=== PATIENT | female | born 1995 | race Caucasian/White ===

== ENCOUNTER → 2018-04-17 09:14 | Outpatient (CLI) | payer BC, SELFPAY ==
[2018-04-17 09:46] LABS: Add Manual Diff / Slide Review NO; Basophils Absolute Auto 0 /uL (0-100); Basophils Percent Auto 0.2 % (0-2); Eosinophils Absolute Auto 0 /uL (0-450); Hematocrit 38.7 % (36-46); Lymphocytes Absolute Auto 1800 /uL (1100-4500); Lymphocytes Percent Auto 18.7 % (25-40); Mean Corpuscular HGB Conc 33.7 % (30-36); Mean Corpuscular Hemoglobin 28.2 PG (26-34); Mean Corpuscular Volume 83.7 fL (80-100); Monocytes Absolute Auto 400 /uL (0-900); Monocytes Percent Auto 4.4 % (3-14); Neutrophils Absolute Auto 7500 /uL (1500-7000); Neutrophils Percent Auto 76.7 % (50-75); Platelet Count 233 X10^3/uL (150-400); Red Blood Cell Count 4.62 X10^6/uL (4.0-5.2); Red Cell Distribution Width 13.7 % (11.6-14.8); White Blood Cell Count 9.7 X10^3/uL (4.5-11.0)
[2018-04-17 10:00] LABS: Appearance Urine UA CLEAR; Bilirubin Urine UA NEGATIVE (NEGATIVE); Color Urine UA YELLOW; Glucose Urine UA NEGATIVE (Negative); Ketones Urine UA NEGATIVE (NEGATIVE); Leukocyte Esterase Urine UA NEGATIVE (NEGATIVE); Nitrite Urine UA NEGATIVE (Negative); Occult Blood Urine UA NEGATIVE (Negative); Protein Urine UA NEGATIVE (Negative); Specific Gravity Urine UA <=1.005 (1.000-1.035); Urobilinogen Urine UA 0.2 E.U./dL (0.2); pH Urine UA 6.5 (4.5-8.0)
[2018-04-17 11:04] LABS: Hepatitis B Surface Antigen NEGATIVE s/c (NEGATIVE); Rubella Antibody IgG 39.3 IU/mL (>15)
[2018-04-17 11:15] LABS: HIV 1 and 2 Antibody NEGATIVE (NEGATIVE); Hep C Virus Ab w/Reflex Quant NEGATIVE s/c (NEGATIVE)
[2018-04-18 15:06] LABS: RPR Screen Nonreactive (Nonreactive)
== END ==
PROVIDERS: Visit Provider Obstetrics & Gynecology
DX: Z34.01 Encounter for supervision of normal first pregnancy, first trimester (principal)
CPT/HCPCS: 36415; 80055; 81003; 86703; 86787; 86803; 86850; 86900; 86901; 87077; 87086; 87186

== ENCOUNTER → 2018-04-25 16:38 | Outpatient (CLI) | payer BC, SELFPAY ==
[2018-04-25 17:00] LABS: Specimen Label NATURA
== END ==
PROVIDERS: Visit Provider Obstetrics & Gynecology
DX: Z34.91 Encounter for supervision of normal pregnancy, unspecified, first trimester (principal)
CPT/HCPCS: 36415

== ENCOUNTER → 2018-06-21 14:26 | Outpatient (CLI) | payer BC, OTHER, MEDICAID, SELFPAY ==
[2018-06-26 13:47] LABS: AFP, Serum 55.2 ng/mL; Calc Gestational Age 18.3; Est Date Determined by US; Maternal Weight 175 lbs; Number of Fetuses NOT GIVEN; Prev Pregnancies Down Syndrome NOT GIVEN
== END ==
PROVIDERS: PCP Family Medicine; Visit Provider Obstetrics & Gynecology
DX: Z34.02 Encounter for supervision of normal first pregnancy, second trimester (principal)
CPT/HCPCS: 36415; 82105

== ENCOUNTER → 2018-07-04 15:06 | Outpatient (CLI) | payer BC, OTHER, MEDICAID, SELFPAY ==
--- NOTE | 2018-07-04 15:08 | DI.US.S_ITS ---
PROCEDURE: US OB >= 14 WEEKS FETUS INDICATIONS: anatomy survey OUTSIDE/PRIOR DATING DATA: Last menstrual period (LMP): Unknown. LMP-based estimated date of delivery (SYMONE): N./A.. First dating scan (date and location): 04/25/18. Estimated date of delivery (SYMONE) from first dating scan: 11/21/18. TECHNIQUE: Real-time scanning was performed of the fetus, with image documentation and biometric measurements. Endovaginal scanning: Not requested. COMPARISON: [facility], OB <= 14 WEEKS FETUS, 05/22/2018, 14:25. [facility], , OB <= 14 WEEKS FETUS, 04/25/2018, 16:21. FINDINGS: General: A single living intrauterine gestation is present. Presentation: Breech. Placenta: Placental position is anterior right lateral, without previa. Amniotic fluid index: 14.9 cm, normal range is 5-24 cm. heart rate: 140 beats per minute. Maternal cervical canal: 4.4 cm long. Normal lower limit is 2.5 cm. biometrics: Biparietal diameter: 21 weeks 0 days Head circumference: 21 weeks 0 days Abdominal circumference: 20 weeks 3 days Femur length: 20 weeks 6 days Estimated gestational age from initial scan: 20 weeks Composite gestational age from present scan: 20 weeks 5 days Estimated weight and percentile: 369 g; 82nd percentile Measurement variability for biometric dating: +/- 7 days from 14 weeks to 15 weeks 6 days gestation, +/- 10 days from 16 weeks to 21 weeks 6 days gestation, +/- 2 weeks from 22 weeks to 27 weeks 6 days gestation, +/- 3 weeks for 28 weeks gestation or later. weight reference: 4500 g or EFW >90/95% is considered macrosomia or large for gestational age. EFW <10% is small for gestational age. EFW 5% or less is considered intra-uterine growth restriction. Anatomic survey: Neuro: Ventricles are non-dilated at less than 10 mm. Cisterna magna is normal at 3-11 mm. Cerebellum is normal in size and morphology. Nuchal skin fold: Normal at less than 6 mm between 14-21 weeks gestational age. Face: Nose and lips, facial profile are normal. Spine: No evidence for spina bifida. Heart: 4-chambered heart is present, with normal ventricular outflow tracts. Diaphragm: Diaphragm is intact. Stomach: Left-sided stomach is present. Kidneys: No hydronephrosis. Normal is less than 5 mm in 2nd trimester, less than 7 mm in 3rd trimester. Cord: 3-vessel cord has orthotopic insertion. Bladder: Normal in size. Extremities: All 4 extremities identified. IMPRESSION: 1. Single living IUP redemonstrated and interval growth is normal. 2. Normal anatomic survey. Dictated by: Luis Carlos [facility] Interpreted: Cong Martinez MD on 07/05/2018 at 8:11 Approved by: Cong Martinez M.D. on 07/06/2018 at 9:48
== END ==
PROVIDERS: PCP Family Medicine; Visit Provider Obstetrics & Gynecology
DX: Z34.02 Encounter for supervision of normal first pregnancy, second trimester (principal); Z3A.20 20 weeks gestation of pregnancy
CPT/HCPCS: 76811

== ENCOUNTER → 2018-08-05 09:19 | Outpatient (CLI) | payer BC, OTHER, MEDICAID, SELFPAY ==
[2018-08-05 11:09] LABS: Hematocrit 31.6 % (36-46); Hemoglobin 11.1 g/dL (12.0-16.0)
[2018-08-05 11:20] LABS: GTT (PREG) 1 Hour PP 50gm Dose 69 mg/dL (76-139)
== END ==
PROVIDERS: PCP Family Medicine; Visit Provider Obstetrics & Gynecology
DX: Z34.02 Encounter for supervision of normal first pregnancy, second trimester (principal)
CPT/HCPCS: 36415; 82950; 85014; 85018

== ENCOUNTER 2018-08-22 15:47 | Observation (INO) | payer BC, OTHER, MEDICAID, SELFPAY ==
[2018-08-22] MEDS: ACETAMINOPHEN 325 MG TABLET 650 MG PO (17:08)
[2018-08-22 17:24] LABS: Fetal Fibronectin Negative
== END 2018-08-22 18:00 | disposition home or self-care (01) ==
PROVIDERS: Admitting Provider Obstetrics & Gynecology; PCP Family Medicine; Visit Provider Obstetrics & Gynecology
DX: O26.892 Other specified pregnancy related conditions, second trimester (principal); M54.9 Dorsalgia, unspecified; Z3A.27 27 weeks gestation of pregnancy
CPT/HCPCS: 59025; 59050; 82731; G0378; G0379

== ENCOUNTER → 2018-09-05 13:05 | Outpatient (CLI) | payer BC, OTHER, MEDICAID, SELFPAY ==
[2018-09-05 13:29] LABS: Add Manual Diff / Slide Review NO; Basophils Absolute Auto 0 /uL (0-100); Basophils Percent Auto 0.3 % (0-2); Eosinophils Absolute Auto 0 /uL (0-450); Hemoglobin 11.6 g/dL (12.0-16.0); Lymphocytes Absolute Auto 1900 /uL (1100-4500); Lymphocytes Percent Auto 16.1 % (25-40); Mean Corpuscular HGB Conc 35.1 % (30-36); Mean Corpuscular Hemoglobin 30.3 PG (26-34); Mean Corpuscular Volume 86.5 fL (80-100); Monocytes Absolute Auto 500 /uL (0-900); Monocytes Percent Auto 4.4 % (3-14); Neutrophils Absolute Auto 9100 /uL (1500-7000); Neutrophils Percent Auto 79.2 % (50-75); Platelet Count 216 X10^3/uL (150-400); Red Blood Cell Count 3.82 X10^6/uL (4.0-5.2); Red Cell Distribution Width 13.6 % (11.6-14.8); White Blood Cell Count 11.5 X10^3/uL (4.5-11.0)
== END ==
PROVIDERS: PCP Family Medicine; Visit Provider Obstetrics & Gynecology
DX: D64.9 Anemia, unspecified (principal)
CPT/HCPCS: 36415; 85025

== ENCOUNTER 2021-06-26 11:19 | Outpatient (CLI) | payer OTHER, SELFPAY | END 2021-06-26 12:15 | disposition home or self-care (01) | LOC: LABOR 12:19 → OB 06-30 06:35 | PROVIDERS: PCP Registered Nurse; Referring Provider Obstetrics & Gynecology; Visit Provider Obstetrics & Gynecology | DX: O13.3 Gestational [pregnancy-induced] hypertension without significant proteinuria, third trimester (principal); Z3A.35 35 weeks gestation of pregnancy | CPT/HCPCS: 59025; G0378; G0379 ==

== ENCOUNTER 2021-06-28 18:49 | Observation (INO) | payer OTHER, SELFPAY ==
[2021-06-28] MEDS: ACETAMINOPHEN 325 MG TABLET 975 MG PO (19:39)
--- NOTE | 2021-06-28 19:51 | DI.US.S_ITS ---
PROCEDURE: US OB BIOPHYSICAL PROFILE INDICATIONS: PRE-ECLAMPSIA OUTSIDE/PRIOR DATING DATA: Last menstrual period (LMP): Unknown. First dating scan (date and location): 02/01/2021. Estimated date of delivery (SYMONE) from first dating scan: 07/25/2021. The calculations are made using the ultrasound SYMONE of 07/25/2021. TECHNIQUE: Real-time scanning was performed of the fetus, with image documentation. Biophysical profile was also obtained. COMPARISON: [facility], , OB LIMITED, 06/03/2021, 3:16. [facility], , US PELVIC COMPLETE, 06/26/2021, 11:09. FINDINGS: General: A single living intrauterine gestation is present. Presentation: Vertex. Placenta: Placental position is left-sided , without previa. Amniotic fluid index: 10.2 cm, normal range is 5-24 cm. Single deepest vertical pocket is 4.3 cm. heart rate: 130 beats per minute. Maternal cervical canal: Not well seen. Composite gestational age from initial scan: 36 weeks 1 day Biophysical profile: Tone: 2 points. Movement: 2 points. Respiration: 2 points. Largest pocket of fluid: 2 points. IMPRESSION: 1. Single living intrauterine redemonstrated in vertex position. 2. Biophysical profile score of 8/8. 3. NIKO within normal limits. We strive to produce accurate, complete, and clear reports of imaging services. To assist us in improving patient care, this report was composed using standard report templates and voice recognition software. Therefore, it may contain abnormal punctuation, insertions and/or omissions. Occasional wrong-word or sound-alike substitutions may occur. Though we review the report and make efforts to correct it, we do recommend that the report be read carefully in proper context to recognize any text inaccuracies. Dictated by: Wang Almaguer M.D. on 06/28/2021 at 22:14 Approved by: Wang Almaguer M.D. on 06/28/2021 at 22:19
[2021-06-28 20:14] LABS: Alanine Aminotransferase 12 IU/L (<35); Albumin 2.9 g/dL (3.5-5.0); Albumin Globulin Ratio 1.1 (1.0-2.8); Alkaline Phosphatase 112 U/L (38-126); Aspartate Aminotransferase 20 IU/L (14-36); BUN Creatinine Ratio 6.3 (6-22); Bilirubin Total 0.2 mg/dL (0.2-1.3); Blood Urea Nitrogen 3 mg/dL (7-17); Calcium 8.3 mg/dL (8.4-10.2); Carbon Dioxide 25 mmol/L (22-32); Chloride 109 mmol/L (98-107); Estimated Glomerular Filt Rate > 60 mL/min (>60); Globulin 2.7 g/dL (1.7-4.1); Glucose 106 mg/dL (70-100); HEMOLYSIS < 15 (0-50); Potassium 3.3 mmol/L (3.4-5.1); Sodium 138 mmol/L (137-145); Total Protein 5.6 g/dL (6.3-8.2)
[2021-06-28 20:18] LABS: Add Manual Diff / Slide Review NO; Basophils Absolute Auto 0 /uL (0-100); Basophils Percent Auto 0.2 % (0-2); Eosinophils Absolute Auto 0 /uL (0-450); Hematocrit 27.6 % (36-46); Hemoglobin 9.1 g/dL (12.0-16.0); Lymphocytes Absolute Auto 1500 /uL (1100-4500); Lymphocytes Percent Auto 17.3 % (25-40); Mean Corpuscular Hemoglobin 24.4 PG (26-34); Monocytes Absolute Auto 400 /uL (0-900); Monocytes Percent Auto 4.9 % (3-14); Neutrophils Absolute Auto 6800 /uL (1500-7000); Neutrophils Percent Auto 77.6 % (50-75); Platelet Count 200 X10^3/uL (150-400); Red Blood Cell Count 3.73 X10^6/uL (4.0-5.2); Red Cell Distribution Width 15.4 % (11.6-14.8); White Blood Cell Count 8.8 X10^3/uL (4.5-11.0)
[2021-06-28 20:24] LABS: Creatinine Urine Random 92.6 mg/dL; Protein (Total) Urine Random 14 mg/dL (0-12); Protein Creatinine Ratio Urine 0.15 GRAM/24H
--- NOTE | 2021-06-28 21:04 | P.TNLD_ITS ---
Visit Information Visit Information Date of evaluation: 06/28/21 Primary OB Provider: Ness Granados On-call OB Provider: Hansa Sutton Reason for Evaluation: Yes non-stress test non-stress test reason: hypertension/pre-eclampsia Comments/Additional reasons for admission: 26-year-old at 35 weeks and 3 days gestation with preeclampsia. She came in today due to persistent headache for 1 week and generally not feeling well. She has not been having strong contractions, leaking or bleeding and is feeling baby move. She just transferred care to Dr. Granados due to preeclampsia. Vital Signs Vital Signs: Temperature 36.9? blood pressure 114/72 heart rate 76 PFSH Social History Smoking Status: Former smoker Objective Labs Result Diagrams: 06/28/21 20:00 06/28/21 20:00 Labs: Laboratory Results - last 24 hr 06/28/21 06/28/21 06/28/21 19:45 20:00 20:00 WBC 8.8 RBC 3.73 L Hgb 9.1 L Hct 27.6 L MCV 74.0 L MCH 24.4 L MCHC 33.0 RDW 15.4 H Plt Count 200 Neut % (Auto) 77.6 H Lymph % (Auto) 17.3 L [place] % (Auto) 4.9 Eos % (Auto) 0.0 L Baso % (Auto) 0.2 Neut # (Auto) 6800 Lymph # (Auto) 1500 [place] # (Auto) 400 Eos # (Auto) 0 Baso # (Auto) 0 Sodium 138 Potassium 3.3 L Chloride 109 H Carbon Dioxide 25 BUN 3 L Creatinine 0.48 L Estimated GFR > 60 BUN/Creatinine Ratio 6.3 Glucose 106 H Calcium 8.3 L Total Bilirubin 0.2 AST 20 ALT 12 Alkaline Phosphatase 112 Total Protein 5.6 L Albumin 2.9 L Globulin 2.7 Albumin/Globulin Ratio 1.1 U Random Total Protein 14 H Urine Creatinine 92.6 Protein/Creatinin Ratio 0.15 Evaluation Evaluation Baseline heart rate: 120 Variability: Moderate (11-25) monitor accelerations: Present Monitor Decelerations: Absent Category of Tracing: Reactive Diagnosis, Plan/Disposition Final Diagnosis (1) Mild preeclampsia: Status: Acute (2) 35 weeks gestation of : Status: Acute Plan/Disposition Plan: 26-year-old at 35 weeks and 3 days gestation with persistent headache x1 week in the setting of known preeclampsia. Blood pressure was normal at 114/72. Platelets, liver enzymes and spot protein creatinine ratio also within normal limits. BPP 8/8. Very low suspicion for preeclampsia as the driving force of her headache. Headache did improve though not resolved with Tylenol. She will follow-up in clinic this week or return sooner if needed. OB Disposition: home
== END 2021-06-28 21:20 | disposition home or self-care (01) ==
LOC: LABOR 18:51
PROVIDERS: Family Medicine; Admitting Provider Obstetrics & Gynecology; PCP Registered Nurse; Referring Provider Obstetrics & Gynecology; Visit Provider Obstetrics & Gynecology
DX: O14.03 Mild to moderate pre-eclampsia, third trimester (principal); Z3A.35 35 weeks gestation of pregnancy
CPT/HCPCS: 36415; 59025; 59050; 76819; 80053; 82570; 84156; 85025; G0378; G0379

== ENCOUNTER 2021-07-02 08:47 | Outpatient (CLI) | payer OTHER, SELFPAY ==
--- NOTE | 2021-07-02 15:50 | PM.OBTRLD ---
Visit Information Visit Information Date of evaluation: 07/02/21 Primary OB Provider: Ness Granados Reason for Evaluation: Yes non-stress test non-stress test reason: hypertension/pre-eclampsia PFSH Social History Smoking Status: Former smoker Exam Narrative Exam Narrative: Generally: No acute distress Evaluation Evaluation Baseline heart rate: 135 Variability: Moderate (11-25) monitor accelerations: Present Monitor Decelerations: Absent Diagnosis, Plan/Disposition Plan/Disposition Plan: Assessment: 26 year old at 36 week with mild Preeclampsia Plan: C's F/U 3 days for NST Induction in 1 week OB Disposition: home
== END 2021-07-02 09:36 | disposition home or self-care (01) ==
LOC: OB 07-07 07:56
PROVIDERS: PCP Registered Nurse; Referring Provider Obstetrics & Gynecology; Visit Provider Obstetrics & Gynecology
DX: Z03.71 Encounter for suspected problem with amniotic cavity and membrane ruled out (principal); O14.03 Mild to moderate pre-eclampsia, third trimester; Z3A.36 36 weeks gestation of pregnancy; Z34.83 Encounter for supervision of other normal pregnancy, third trimester
CPT/HCPCS: 59025; 84112; 87653; G0378; G0379

== ENCOUNTER → 2021-07-02 08:54 | Outpatient (CLI) | payer OTHER, SELFPAY ==
[2021-07-03 07:45] LABS: Strep Grp B PCR NEG for Grp B Strep
== END ==
PROVIDERS: PCP Registered Nurse; Visit Provider Obstetrics & Gynecology
DX: Z34.83 Encounter for supervision of other normal pregnancy, third trimester (principal); Z3A.36 36 weeks gestation of pregnancy
CPT/HCPCS: 87653

== ENCOUNTER 2021-07-05 13:42 | Outpatient (CLI) | payer OTHER, SELFPAY | END 2021-07-05 14:30 | disposition home or self-care (01) | LOC: OB 07-08 07:39 | PROVIDERS: PCP Registered Nurse; Referring Provider Obstetrics & Gynecology; Visit Provider Obstetrics & Gynecology | DX: O14.93 Unspecified pre-eclampsia, third trimester (principal); O36.8130 Decreased fetal movements, third trimester, not applicable or unspecified; Z3A.36 36 weeks gestation of pregnancy | CPT/HCPCS: 59025; G0378; G0379 ==

== ENCOUNTER 2021-07-09 13:45 | Outpatient (CLI) | payer OTHER, SELFPAY ==
[2021-07-09 15:20] VITALS: BP 109/71; PULSE 85; RESP 20; TEMP 36.8
== END 2021-07-09 15:15 | disposition home or self-care (01) ==
LOC: LABOR 14:24 → OB 07-10 08:52
PROVIDERS: PCP Registered Nurse; Referring Provider Obstetrics & Gynecology; Visit Provider Obstetrics & Gynecology
DX: O13.3 Gestational [pregnancy-induced] hypertension without significant proteinuria, third trimester (principal); Z3A.37 37 weeks gestation of pregnancy
CPT/HCPCS: 59025; G0378; G0379

== ENCOUNTER 2021-07-09 18:35 | Inpatient (IN) | payer OTHER, SELFPAY ==
--- NOTE | 2021-07-09 20:34 | PM.OBHP.IH.1 ---
OB HPI Date/Time Date of admission: 07/09/21 Date Patient Seen: 07/09/21 Time Patient Seen: 20:34 History of Present Condition Chief complaint: Induction Estimated Gestational Age (weeks): 37 : 2 Para: 1 care: good care Dating criteria OB: LMP confirmed by 1st trimester US Ultrasounds: normal 1st trimester US and normal mid trimester US Obstetrical complications: preeclampsia (Mild) Medical complications OB: none Indications Indication for induction OB: gestational HTN/pre-eclampsia Preadmission Labs Last OB Lab Results: Blood Type A Positive 07/09/21 21:00 07/09/21 Antibody Screen Negative 07/09/21 21:00 07/09/21 Hematocrit 28.5 % (36-46) L 07/09/21 21:00 07/09/21 Hemoglobin 9.3 g/dL (12.0-16.0) L 07/09/21 21:00 07/09/21 Hepatitis B Surface Antigen Negative s/c (NEGATIVE) 04/17/18 09:25 04/17/18 Hepatitis C Antibody Negative s/c (NEGATIVE) 04/17/18 09:25 04/17/18 Rubella Antibody 39.3 IU/mL (>15) 04/17/18 09:25 04/17/18 Varicella-Zoster IgG Antibody 1010.00 Index (< 135.00) H 04/17/18 09:25 04/17/18 Glucose 1 Hour 69 mg/dL (76-139) L 08/05/18 10:30 08/05/18 Group B Streptococcus (PCR) Neg for grp b strep 07/02/21 08:54 07/02/21 -: Urine: positive (alpha strept) -: PAP smear: Normal Genetic Screens: Cell-free DNA: Normal (male) External Labs Blood type OB HPI: A (+) positive HCT: 38.4 -: Antibody screen: negative, HBsAG: negative, RPR/VDLR: negative, GBS status: negative and Urine: positive (alpha strept) -: Rubella: immune PAP: Normal Genetic Screens: Cell-free DNA: Normal (male) Narrative: 1 hr GTT 115 Prior (ies) Past Pregnancies Del. Date GA/Weeks Labor Lgth Wt Sex Route Outcome Anesthesia Place Delv Breastfeed Preg Comp Name 11/13/18 39 8 9 lb 1 oz Male vaginal live - full term none MVBC 1 year none Evaluation Evaluation Baseline heart rate: 135 Variability: Moderate (11-25) monitor accelerations: Present Monitor Decelerations: Absent Contraction Frequency (minutes): 3 Uterine Contraction Intensity: Moderate Status: Category l Dilation (cm): 2 Effacement (%): 70 station: -2 Position of cervix: mid Consistency: soft PFSH Social History Smoking Status: Unknown if ever smoked Meds Home Medications and Allergies Home Medications Medication Instructions Recorded Confirmed Type prenat.vits,zac,kyq-wtoo-aotka 1 tab PO DAILY 04/17/18 07/09/21 History Double Electric Breast Pump #1 each 09/18/18 07/10/21 Rx paroxetine HCl 10 mg tablet (Paxil) 10 mg PO DAILY 11/15/18 07/09/21 History Allergies Allergy/AdvReac Type Severity Reaction Status Date / Time lamotrigine [From Lamictal] Allergy Unknown Verified 07/09/21 23:24 metronidazole [From Flagyl] Allergy Unknown Verified 07/09/21 23:24 Penicillins Allergy Unknown Verified 07/09/21 23:24 OB Exam Narrative Exam Narrative: Generally: Mild contractions, no acute distress Lungs: Clear to auscultation bilaterally Cardiovascular: Regular rate and rhythm Fundal height: 37 cm Estimated weight: 7 lb Extremities: Trace edema, 1+ DTRs Objective Labs Result Diagrams: 07/09/21 21:00 Assessment and Plan Assessment and Plan Assessment and Plan narrative: Assessment: 26-year-old 2 para 1 at 37 weeks gestation with mild preeclampsia Status post Cervidil overnight Plan: Pitocin augmentation of labor Artificial rupture of membranes when able Epidural as necessary Expected management to spontaneous vaginal delivery Time Spent with Patient Total time spent with greater than 50% in coordination of care (as documented) at patient's floor/unit and/or counseling patient:: 15-24 minutes
[2021-07-09 21:12] LABS: Add Manual Diff / Slide Review NO; Basophils Absolute Auto 100 /uL (0-100); Basophils Percent Auto 0.7 % (0-2); Eosinophils Absolute Auto 0 /uL (0-450); Hematocrit 28.5 % (36-46); Hemoglobin 9.3 g/dL (12.0-16.0); Lymphocytes Absolute Auto 1700 /uL (1100-4500); Mean Corpuscular HGB Conc 32.8 % (30-36); Mean Corpuscular Hemoglobin 24.1 PG (26-34); Mean Corpuscular Volume 73.4 fL (80-100); Monocytes Absolute Auto 700 /uL (0-900); Monocytes Percent Auto 7.1 % (3-14); Neutrophils Absolute Auto 7400 /uL (1500-7000); Neutrophils Percent Auto 75.2 % (50-75); Platelet Count 185 X10^3/uL (150-400); Red Blood Cell Count 3.88 X10^6/uL (4.0-5.2); Red Cell Distribution Width 15.6 % (11.6-14.8); White Blood Cell Count 9.8 X10^3/uL (4.5-11.0)
[2021-07-09] MEDS: DINOPROSTONE VAG (CERVIDIL) 10 MG VAG (21:30)
[2021-07-09 21:39] LABS: COVID19 -Nasal RAPID Negative (Negative)
[2021-07-09 23:18] VITALS: BP 127/67
[2021-07-10] MEDS: LACTATED RINGERS 1,000 ML 100 ML IV ×2 (00:37→10:58)
[2021-07-10] MEDS: OXYTOCIN PREMIX 30 UNIT/500 ML PLAST..BAG IV (10:58)
--- NOTE | 2021-07-10 11:19 | PM.OBPNLAB ---
Date/Time Date Patient Seen: 07/10/21 Time Patient Seen: 10:20 Pain Control Pain control: tolerating well Pelvic Exam Dilation (cm): 2 Effacement (%): 70 station: -2 Amniotic membrane status: Intact Contractions Contractions on admission: regular Monitor mode: External Contraction frequency (min): 3 Contraction duration (min): 1 Contraction pattern: Regular Contraction intensity: Moderate Status status: Category l Heart Rate Baseline: 140 Monitor Accelerations: Present Monitor Decelerations: Absent Monitor Variability: Moderate Assessment and Plan Assessment: induction ongoing Comments: Begin Pitocin augmentation Epidural prn
[2021-07-10] MEDS: ACETAMINOPHEN 325 MG TABLET 975 MG PO ×2 (11:38→19:27)
--- NOTE | 2021-07-10 14:57 | PM.OBPNLAB ---
Date/Time Date Patient Seen: 07/10/21 Time Patient Seen: 14:57 Pain Control Pain control: tolerating well Pelvic Exam Dilation (cm): 3 Effacement (%): 75 station: -1 Amniotic membrane status: Intact Contractions Contractions on admission: none Monitor mode: External Pitocin rate (mU/min): 10 Contraction frequency (min): 3 Contraction duration (min): 1 Contraction pattern: Regular Contraction intensity: Strong/Firm Status status: Category l Heart Rate Baseline: 125 Monitor Accelerations: Present Monitor Decelerations: Absent Monitor Variability: Moderate Assessment and Plan Assessment: induction ongoing Comments: AROM with copious clear amniotic fluid Expectant management to
--- NOTE | 2021-07-10 20:33 | PM.OBPNLAB ---
Date/Time Date Patient Seen: 07/10/21 Time Patient Seen: 20:05 Pain Control Pain control: tolerating well Pelvic Exam Dilation (cm): 7 Effacement (%): 85 station: 0 Amniotic membrane status: Ruptured Contractions Contractions on admission: none Monitor mode: External Pitocin rate (mU/min): 16 Contraction frequency (min): 3 Contraction duration (min): 1 Contraction pattern: Regular Contraction intensity: Strong/Firm Status status: Category ll Heart Rate Baseline: 135 Monitor Accelerations: Present Monitor Decelerations: Early and Variable Monitor Variability: Moderate Assessment and Plan Assessment: active labor Plan: continuous present management Comments: Exaggerated Lawson Expectant management to
--- NOTE | 2021-07-10 21:19 | PM.OBPNLAB ---
Date/Time Date Patient Seen: 07/10/21 Time Patient Seen: 21:19 Pain Control Pain control: tolerating well Pelvic Exam Dilation (cm): 8 Effacement (%): 85 station: +1 Amniotic membrane status: Ruptured Contractions Contractions on admission: none Monitor mode: External Pitocin rate (mU/min): 17 Contraction frequency (min): 3 Contraction duration (min): 1 Contraction pattern: Regular Contraction intensity: Strong/Firm Status status: Category l Heart Rate Baseline: 125 Monitor Accelerations: Present Monitor Decelerations: Absent Monitor Variability: Moderate Assessment and Plan Assessment: active labor Plan: continuous present management Comments: Hands and knees position Expectant management to
--- NOTE | 2021-07-10 23:44 | P.PCNOB_ITS ---
Events: Pre-Eclampsia and Labor Induction Labor & Delivery Delivery date: 07/10/21 Intrapartal Events: Mild Preeclampsia Cervical ripening method: per Cervidil protocol Induction method: per pitocin protocol Delivery augmentation: rupture of membranes Delivery monitor: external FHT and external uterine Route of delivery: Episiotomy description: None L&D Laceration Description: Vaginal - 1st Degree Delivery repair: chromic Estimated blood loss (mL): 250 Anesthesia Type: None Complications: None Narrative: Patient complete and pushed for 50 minutes. There was a small lip of cervix that was reduced. With the next contraction a live male infant delivered spontaneously in the ARLINE presentation at 11:12 p.m., over an intact perineum. The remainder of the body delivered without difficulty and was placed on mom's abdomen. The cord was double clamped and cut after it stopped pulsing. Pitocin was given in the IV fluids. Cord bloods were obtained. The placenta delivered intact with a three-vessel cord at 11:27 p.m.. The placenta was very calcified. Fundus was massaged to firm. A first-degree vaginal laceration was repaired with 2 0 chromic. Hemostasis was achieved. Apgars were 7 at 1 minute and 8 at 5 minutes. Weight 6 lb 11 oz. . Local analgesia only. Mom and stable to recovery. [place] Baby 1: Infant gender: Male Presentation: vertex Position: Right Occiput Anterior Placenta delivery description: Spontaneous Cord Vessel Description: 3 Vessels, Nuchal Cord (x1), Loose and Reduced score (1 min): 7 score (5 min): 8 weight: 6 lb 11 oz Plan for aftercare: Routine care
[2021-07-11] MEDS: KETOROLAC 30 MG/ML VIAL IV (00:27)
[2021-07-11] MEDS: LIDOCAINE 1% 20 ML (00:27)
[2021-07-11] MEDS: DERMOPLAST SPRAY 20% 60 ML 1 SPRAY TOP (06:30)
[2021-07-11] MEDS: ACETAMINOPHEN 325 MG TABLET 650 MG PO (06:31)
[2021-07-11] MEDS: IBUPROFEN 600 MG TABLET PO ×2 (06:32→12:43)
[2021-07-11 07:42] LABS: Hematocrit 28.4 % (36-46); Hemoglobin 9.2 g/dL (12.0-16.0)
[2021-07-11] MEDS: PRENATAL VIT,CALC/IRON/FOLIC 1 TABLET 1 TAB PO (08:50)
[2021-07-11] MEDS: DOCUSATE 100 MG CAPSULE PO (08:50)
--- NOTE | 2021-07-11 13:20 | PM.OBPN.1 ---
Subjective - OB Subjective Patient comments: no complaints and pain well controlled baby status: doing well and nursing well feeding status: exclusively breast feeding Date Patient Seen: 07/11/21 Time Patient Seen: 13:20 Interval history: No headache this morning. No blurred vision or spots before her eyes. Exam Narrative Exam Narrative: Generally: Patient is sitting up in bed, nursing infant, no acute distress Fundus: Firm at U -2 Extremities: 1+ edema, negative Homans, 1+ DTRs Objective Labs Result Diagrams: 07/11/21 06:35 Labs: Laboratory Results - last 24 hr 07/11/21 06:35 Hgb 9.2 L Hct 28.4 L Assessment & Plan Plan day: 1 plan OB: routine care and discharge home Comments: Assessment: 26-year-old 2 para 2 day # 0-1 status post induction of labor resulting in a spontaneous vaginal delivery. Mild preeclampsia Plan: Discharged home later today Follow-up in 6 weeks Time Spent With Patient Time: Total time spent is greater than 50% in coordination of care (as documented) at patient's floor/unit and/or counseling patient: Time with patient: 15-24 minutes
--- NOTE | 2021-07-11 13:22 | PM.OBDS.1 ---
Discharge Providers Provider Date of admission: 07/09/21 18:35 Discharge Date: 07/09/21 Primary care physician: Zandra Bang CNM Consults: 07/11/21 23:42 Consult to [employer]ice Routine Comment: Discharge provider: Ness Granados MD Summary Hospital Course Date Patient Seen: 07/11/21 Time Patient Seen: 13:22 Diagnoses: 37 +1 weeks gestation Mild preeclampsia Induction of labor Cervical ripening Spontaneous vaginal delivery First-degree vaginal laceration and repair Hospital Course: Patient is a 26-year-old 2 para 2 who presented on July 09, 2021 for cervical ripening for induction of labor due to mild preeclampsia at 37 weeks gestation. She received 1 Cervidil. On the morning of July 10, 2021 she was started on Pitocin. Artificial rupture of membranes was performed. She progressed slowly to complete dilation. She had a spontaneous vaginal delivery without complication. She had a first-degree vaginal laceration which was repaired. Her course was unremarkable. On day # 0-1, she was without headache or visual changes. No right upper quadrant pain. She is discharged home. Peripartum Data Delivery Method: Natural Vaginal Laceration Description: Vaginal - 1st Degree Episiotomy description: None Procedures: Cervidil cervical ripening Pitocin induction of labor Artificial rupture of membranes Spontaneous vaginal delivery First-degree vaginal laceration repair complications: none Sharon 1: Gender: Male Disposition of : home Status at Discharge Cognitive/behavioral status at discharge: oriented Functional status at discharge: independent ambulation Overall status at discharge: patient is progressing back to baseline Time Spent with Patient Time attestation: Total time spent providing and/or coordinating discharge services: Time spent: Less than 30 minutes Objective Labs Result Diagrams: 07/11/21 06:35 Labs: Laboratory Results - last 24 hr 07/11/21 06:35 Hgb 9.2 L Hct 28.4 L Exam Narrative Exam Narrative: Generally: Patient is sitting up in bed, nursing , no acute distress Fundus: Firm at U -2 Extremities: 1+ edema, negative Homans, 1+ DTRs, no clonus Discharge Plan Discharge Plan Patient Disposition: Home Provider Discharge Comment: Call with fever, chills, or bleeding vaginally more than a pad in an hour Call with headache, blurred vision, spots before her eyes, or right upper quadrant pain Tylenol 650 mg every 6 hours as needed Ibuprofen 600 mg every 6 hours as needed Discharge orders & Medications Prescriptions: Continued prenat.vits,zac,irc-ddvx-rukbn tablet 1 tab PO DAILY 0RF paroxetine HCl [Paxil] 10 mg tablet 10 mg PO DAILY 0RF Discontinued Adacel(Tdap Adolesn/Adult)(PF) 2 Lf-(2.5-5-3-5 mcg)-5Lf/0.5 mL suspension 0.5 ml IM ONCE Qty: 0.5 0RF No Action (DME) Double Electric Breast Pump 0 .ROUTE .MEDSUPPLY Qty: 1 0RF Rx Instructions: As directed for 99 months. Follow up/Referrals: Ness Granados MD [Physician] - ( appt: August 20 @ 3pm w/ Dr. Granados) Diet/Activity/Treatments Diet: Regular Activity: Nothing in the vagina for 6 weeks Skin/Wound/Dressing Care Report to your healthcare provider any signs of infection, such as:: chills, fever, increased pain and unusual drainage Visit Report/Discharge Packet Instructions: DI for Labor and Delivery, Vaginal , Pre-eclampsia Discharge Data Primary Care Provider: Zandra Bang
[2021-07-11 17:48] VITALS: BP 112/70; PULSE 92; RESP 16; TEMP 36.7
== END 2021-07-11 18:32 | disposition home or self-care (01) | DRG 807 ==
PROVIDERS: Admitting Provider Obstetrics & Gynecology; PCP Registered Nurse; Referring Provider Obstetrics & Gynecology; Visit Provider Obstetrics & Gynecology
DX: O14.04 Mild to moderate pre-eclampsia, complicating childbirth (principal); Z37.0 Single live birth; Z3A.37 37 weeks gestation of pregnancy; O70.0 First degree perineal laceration during delivery; O69.81X0 Labor and delivery complicated by cord around neck, without compression, not applicable or unspecified; Z20.822 Contact with and (suspected) exposure to COVID-19; O13.3 Gestational [pregnancy-induced] hypertension without significant proteinuria, third trimester
CPT/HCPCS: 36415; 59025; 59050; 59200; 59410; 85014; 85018; 85025; 86850; 86900; 86901; 87635; C9803; G0379; J1885; J2590

== ENCOUNTER → 2021-08-20 15:45 | Outpatient (CLI) | payer OTHER, SELFPAY | PROVIDERS: PCP Registered Nurse; Visit Provider Obstetrics & Gynecology | DX: R30.9 Painful micturition, unspecified (principal) | CPT/HCPCS: 87077; 87086; 87186 ==